=== PATIENT | male | born 1955 | race Caucasian/White ===

== ENCOUNTER 2021-05-10 23:45 | Emergency (ER) | payer MEDICARE, OTHER ==
[~2021-05-10] VITALS: Ht 73 cm; Wt 131.5 kg
--- OUTSIDE RECORDS SUMMARY | 2021-05-10 23:57 | XMS REPORT | Clinical Summary ---
Author Author [facility] Organization [facility] Address Unknown Phone Unavailable Care Team Providers Care Manager Of Planning Name Role Phone PCP Unavailable Allergies Not on File Medications Not on file Active Problems Not on file Social History Date Tobacco Use Types Packs/Day Years Used Never Assessed Sex Assigned at Date Recorded Not on file Last Filed Vital Signs Not on file Plan of Treatment Health Maintenance Due Date Last Done Comments Td/Tdap# 1955 Zoster Vaccine# (1 of 2) 2003 Fall Risk Assessment # 2018 Pneumococcal Vaccine: 65+ 2018 Years (1 of 1 - PPSV23) Influenza Vaccine (#1) 2021 Results Not on filefrom Last 3 Months Advance Directives For more information, please contact: [phone] Patient Electric Wirer Explanation Type Date Recorded Advance Directives and Living Will Power of Producer Assistant
--- OUTSIDE RECORDS SUMMARY | 2021-05-10 23:57 | XMS REPORT | Clinical Summary ---
Author Author [facility] Organization [facility] Address Unknown Phone Unavailable Care Team Providers Care Apprentice Name Role Phone Vannesa Spence PA-C Unavailable Source Comments Some departments are not documenting in the electronic medical record. If you d o not see the information that you expected, contact Release of Information in [facility] TakeCare Information Management department at [phone] for further assistan ce in locating additional records.[facility] Allergies Not on File Medications Not on file Active Problems Not on file Social History Date Tobacco Use Types Packs/Day Years Used Never Assessed Sex Assigned at Date Recorded Not on file Last Filed Vital Signs Not on file Plan of Treatment Health Maintenance Due Date Last Done Comments DTAP/TDAP VACCINES (1 - 1971 Tdap) HEPATITIS C SCREENING 1971 PHYSICAL (COMPREHENSIVE) 1971 EXAM COLORECTAL CANCER 2003 SCREENING SHINGLES RECOMBINANT 2003 VACCINE (1 of 2) PNEUMONIA (PPSV23) 2018 VACCINE (1 of 1 - PPSV23) INFLUENZA VACCINE 02/24/2021 Results Not on filefrom Last 3 Months Advance Directives Patient Examination Proctor Explanation Type Date Recorded Advance Directives 01/31/2011 12:00 AM and Living Will Advance Directives 01/22/2011 12:00 AM and Living Will Advance Directives 01/22/2011 12:00 AM and Living Will
--- OUTSIDE RECORDS SUMMARY | 2021-05-10 23:57 | XMS REPORT | Clinical Summary ---
Author Author [facility] Organization [facility] Address Unknown Phone Unavailable Care Team Providers Care Parts Lister Name Role Phone Greg Benavides MD PP [phone] Allergies No known active allergies Medications End Date Status Medication Sig Dispensed Refills Start Date Active fluticasone (FLONASE) 50 1 spray into 0 mcg/actuation nasal spray each nostril daily. Active hydrochlorothiazide Take 25 mg by 0 (HYDRODIURIL) 25 MG mouth daily. tablet Active LISINOPRIL ORAL Take by 0 mouth. Active Problems Not on file Social History Date Tobacco Use Types Packs/Day Years Used Former Smoker Comments Alcohol Use Standard Drinks/Week Not Asked 0 (1 standard drink = 0.6 o z pure alcohol) Sex Assigned at Date Recorded Not on file Last Filed Vital Signs Reading Time Taken Comments Vital Sign 130/88 08/31/2014 1:19 PM CYLINDER HONER Blood Pressure 96 08/31/2014 1:19 PM CYLINDER HONER Pulse 36.8 C (98.3 F) 08/31/2014 1:19 PM CYLINDER HONER Temperature 16 08/31/2014 1:19 PM CYLINDER HONER Respiratory Rate 96% 08/31/2014 1:19 PM CYLINDER HONER Oxygen Saturation - - Inhaled Oxygen Concentration 141 kg (310 lb) 08/31/2014 1:19 PM CYLINDER HONER Weight 185.4 cm (6' 1") 08/31/2014 1:19 PM CYLINDER HONER Height 40.9 08/31/2014 1:19 PM CYLINDER HONER Body Mass Index Plan of Treatment Not on file Results Not on filefrom Last 3 Months Insurance Type Payer Benefit Subscriber ID Effective Phone Address Plan / Dates Group BCBS [employer] BCBS [id number] 2016-P [facility] - NON HMO PLANS [id number] Care Teams Start Date End Date Parts Lister Relationship Specialty 08/31/14 Greg Benavides, PCP - Final Rail Cutter [facility] [id number] [place] [address]
--- NOTE | 2021-05-11 00:33 | ED Fall/Injury ---
General Chief Complaint: Trauma-Non Activation Stated Complaint: FALL Nursing Triage Note: Fall from standing; witnessed by bystanders; +LOC; on pradaxa for a-fib Source: patient, EMS Exam Limitations: no limitations History of Present Illness Date Seen by Provider: May 11, 2021 Time Seen by Provider: 12:16 Initial Comments 66-year-old male presents to the emergency room by ambulance today with a chief complaint of fall while walking to his hotel. Patient apparently was walking across a parking lot when bystanders saw him trip, he reportedly fell backwards striking his head on the ground. Per bystanders a loss of consciousness was reported, the patient denies this. He states that he has drank "a lot" today as he is in town for [facility] homecoming. He complains of some discomfort to the left elbow although he demonstrates good range of motion and no bony tenderness. Denies any other complaints of illness or injury. States that he is on Pradaxa for history of A. fib. Has an obvious contusion to the back of his head but declines CT brain. He is awake alert oriented, no acute distress. Does not require any medications. Patient did reportedly vomit after arrival to the emergency department. All other review of systems reviewed and negative except as stated. Location Injury Occurred: [employer] parking lot Occurred: just prior to arrival Injuries/Pain Location: upper extremity (left elbow) Context: unknown Loss of Consciousness: unsure Associated Symptoms (Fall): Nausea/Vomiting (vomiting on arrival) Allergies and Home Medications Allergies Coded Allergies: No Allergy Information Available (Unverified , 05/11/21) Patient Home Medication List Home Medication List Reviewed: Yes Review of Systems Review of Systems Constitutional: see HPI Eyes: No Symptoms Reported Ears, Nose, Mouth, Throat: no symptoms reported Respiratory: no symptoms reported Cardiovascular: no symptoms reported Gastrointestinal: vomiting Genitourinary: no symptoms reported Musculoskeletal: joint swelling (left elbow) Skin: other (abrasion left arm) Psychiatric/Neurological: No Symptoms Reported All Other Systems Reviewed Negative Unless Noted: Yes Past Onvyerp-Tkfimt-Ggvhpb Hx Patient Social History Tobacco Use?: No Use of E-Cig and/or Vaping dev: No Substance use?: No Alcohol Use?: Yes Alcohol type: Beer Pt feels they are or have been: No Immunizations Up To Date COVID19 Vaccine Marine Technician: [place] Physical Exam Vital Signs Vital Signs - First Documented 05/11/21 05/11/21 00:00 00:56 Temp 36.7 Pulse 78 Resp 18 B/P (MAP) 164/109 (127) Pulse Ox 94 O2 Delivery Room Air Capillary Refill : Less Than 3 Seconds Height, Weight, BMI Height: '" Weight: lbs. oz. kg; 246.00 BMI Method: General Appearance: WD/WN, no apparent distress HEENT: PERRL/EOMI, normal ENT inspection, TMs normal, pharynx normal, other (mild abrasion posterior occipus) Neck: non-tender, full range of motion Cardiovascular: irregularly irregular Respiratory: lungs clear, normal breath sounds, no respiratory distress, no accessory muscle use Gastrointestinal: normal bowel sounds, non tender, soft Extremities: normal range of motion, pedal edema, swelling (left medial elbow - hematoma, superficial abrasion down the forearm) Neurologic/Psychiatric: alert, normal mood/affect, oriented x 3 Skin: normal color, warm/dry, other (as above) [place] Coma Score Best Eye Response: (4) Open Spontaneously Best Verbal Response: (5) Oriented Best Motor Response: (6) Obeys Commands Progress/Results/Core Measures Results/Orders My Orders Orders - KALIA FRANKS MD Ekg Tracing (05/11/21 00:35) Vital Signs/I&O 05/11/21 05/11/21 00:00 00:56 Temp 36.7 Pulse 78 67 Resp 18 B/P (MAP) 164/109 (127) 139/86 Pulse Ox 94 97 O2 Delivery Room Air Room Air Blood Pressure Mean: 127 Progress Progress Note : Time: 00:30 Progress Note long discussion with patient regarding his anticoagulation (on pradaxa for a fib) and head injury. He states he did not have LOC (bystanders said apparently he did). He emphatically refuses CT head. He is awake, alert, oriented and neurologically normal. HIs VS are stable. HE does not want an xray of his left elbow (i do not think it is broken - good ROM no bony tenderness). I advised him of risks of no CT - he verbalizes understanding and again refuses. He declines any medications and states he will call a cab to go back to his hotel at the [employer]. Rest of his exam is unremarkable for any acute injury. Initial ECG Impression Date: May 11, 2021 Initial ECG Impression Time: 23:56 Initial ECG Rate: 76 Initial ECG Rhythm: A Fib/Flutter Initial ECG Impression: Atrial Fibrillation Departure Impression Primary Impression: Traumatic hematoma of left elbow Qualified Codes: S50.02XA - Contusion of left elbow, initial encounter Additional Impressions: Minor head injury Qualified Codes: S09.90XA - Unspecified injury of head, initial encounter Scalp abrasion Qualified Codes: S00.01XA - Abrasion of scalp, initial encounter Chronic anticoagulation Disposition: HOME, SELF-CARE Condition: Stable Departure-Patient Inst. Decision time for Depature: 00:34 Referrals: NO,LOCAL PHYSICIAN (PCP/Family) Primary Care Physician Patient Instructions: HEMATOMA, Minor Head Injury (DC) Add. Discharge Instructions: Ice packs to the left elbow off and on 20 minutes at a time 4 times a day for the next several days. Tylenol as needed for pain. Please come immediately back to the emergency room if you develop a severe headache, vomiting, problems with balance and coordination or any other emergent concerning symptoms develop. KALIA FRANKS MD May 11, 2021 00:33
[2021-05-11 00:56] VITALS: BP 139/86
== END 2021-05-11 01:05 | disposition home or self-care (01) ==
LOC: ER 23:52
DX: S50.02XA Contusion of left elbow, initial encounter (principal); S00.01XA Abrasion of scalp, initial encounter; S50.812A Abrasion of left forearm, initial encounter; S09.90XA Unspecified injury of head, initial encounter; I48.91 Unspecified atrial fibrillation; Z79.01 Long term (current) use of anticoagulants; W22.8XXA Striking against or struck by other objects, initial encounter
CPT/HCPCS: 93005

== ENCOUNTER 2021-05-11 08:59 | Emergency (ER) | payer MEDICARE, OTHER ==
[2021-05-11] MEDS ORDERED: NALOXONE 0.4 MG/ML 1 ML (NARCAN) VIAL IV ONE (09:05)
[2021-05-11] MEDS ORDERED: SUCCINYLCHOLINE INJ 100 MG/5 ML SYR/VIAL INJ ONE (09:05)
[2021-05-11] MEDS ORDERED: ROCURONIUM 10 MG/ML 5 ML SYRINGE IV ONE (09:05)
[2021-05-11] MEDS ORDERED: proPOfol 200 MG/20 ML (DIPRIVAN) VIAL IV ONE (09:05)
[2021-05-11] MEDS ORDERED: ETOMIDATE IV SOLN 20 MG/10 ML VIAL IV ONE (09:05)
[2021-05-11] MEDS ORDERED: fentaNYL INJ 100 MCG/2 ML AMP IV ONE (09:05)
[2021-05-11] MEDS ORDERED: PROPOFOL DRIP (ICU) 100 ML IV ONE ×2 (09:20→10:51)
[2021-05-11 09:40] LABS: BASOPHILS % (AUTO) 0 % (0-10); EOSINOPHILS % (AUTO) 0 % (0-10); HEMATOCRIT 47 % (40-54); HEMOGLOBIN 15.9 g/dL (13.3-17.7); LYMPHOCYTES # (AUTO) 1.6 10^3/uL (1.0-4.0); LYMPHOCYTES % (AUTO) 13 % (12-44); MEAN CORPUSCULAR HEMOGLOBIN 32 pg (25-34); MEAN CORPUSCULAR HGB CONC 34 g/dL (32-36); MEAN CORPUSCULAR VOLUME 96 fL (80-99); MEAN PLATELET VOLUME 12.1 fL (9.0-12.2); MONOCYTES # (AUTO) 1.2 10^3/uL (0.0-1.0); MONOCYTES % (AUTO) 9 % (0-12); NEUTROPHILS # (AUTO) 9.4 10^3/uL (1.8-7.8); NEUTROPHILS % (AUTO) 76 % (42-75); PLATELET COUNT 197 10^3/uL (130-400); WHITE BLOOD COUNT 12.4 10^3/uL (4.3-11.0)
[2021-05-11 09:42] LABS: BILIRUBIN,URINE NEGATIVE (NEGATIVE); CLARITY,URINE CLEAR; COLOR,URINE YELLOW; GLUCOSE, URINE (UA) 3+ (NEGATIVE); KETONES,URINE 1+ (NEGATIVE); LEUKOCYTE ESTERASE ,URINE NEGATIVE (NEGATIVE); NITRITE,URINE NEGATIVE (NEGATIVE); PH,URINE 5.5 (5-9); PROTEIN,URINE TRACE (NEGATIVE)
[2021-05-11 09:46] LABS: ALBUMIN 4.3 GM/DL (3.2-4.5); CHLORIDE 93 MMOL/L (98-107); POTASSIUM 5.2 MMOL/L (3.6-5.0); SODIUM 133 MMOL/L (135-145)
[2021-05-11 09:47] LABS: CALCIUM 9.1 MG/DL (8.5-10.1)
[2021-05-11 09:48] LABS: FIBRIN DEGRADATION PRODUCTS 3.81 UG/ML (0.00-0.49); INR 1.1 (0.8-1.4); PROTHROMBIN TIME PATIENT 14.7 SEC (12.2-14.7)
[2021-05-11 09:49] LABS: TOTAL PROTEIN 8.2 GM/DL (6.4-8.2)
[2021-05-11 09:50] LABS: BILIRUBIN,TOTAL 1.5 MG/DL (0.1-1.0); CARBON DIOXIDE 15 MMOL/L (21-32)
[2021-05-11 09:52] LABS: ALKALINE PHOSPHATASE 113 U/L (40-136); CREATININE SERUM 1.35 MG/DL (0.60-1.30); GFR ESTIMATED 53
[2021-05-11 09:53] LABS: BUN/CREATININE RATIO 14; GLUCOSE 407 MG/DL (70-105)
[2021-05-11 09:55] LABS: ALANINE AMINOTRANSFERASE 57 U/L (0-55); AMPHETAMINE SCREEN, URINE NEGATIVE (NEGATIVE); BARBITURATE SCREEN URINE NEGATIVE (NEGATIVE); BENZODIAZEPINES SCREEN URINE POSITIVE (NEGATIVE); CANNABINOID SCREEN, URINE NEGATIVE (NEGATIVE); COCAINE SCREEN URINE NEGATIVE (NEGATIVE); METHADONE STAT NEGATIVE (NEGATIVE); METHAMPHETAMINE SCREEN URINE S NEGATIVE (NEGATIVE); OPIATE SCREEN URINE NEGATIVE (NEGATIVE); OXYCODONE STAT NEGATIVE (NEGATIVE); PROPOXYPHENE STAT NEGATIVE (NEGATIVE); TRICYCLIC ANTIDEPRESSANTS SCRE NEGATIVE (NEGATIVE)
[2021-05-11 09:59] LABS: RBC,URINE 0-2 /HPF
[2021-05-11 10:00] LABS: BACTERIA,URINE NEGATIVE /HPF; WBC,URINE RARE /HPF
[2021-05-11 10:01] LABS: MAGNESIUM 1.8 MG/DL (1.6-2.4)
[2021-05-11] MEDS ORDERED: NS IV 1000 ML 1,000 ML IV SCH (10:15)
[2021-05-11] MEDS ORDERED: IOHEXOL 350 MG/ML 100 ML (OMNIPAQUE 350) VIAL IV ONE (10:30)
[2021-05-11] MEDS ORDERED: HOLD METFORMIN - RECEIVED CONTRAST 20 ML VIAL IV SCH (10:30)
[2021-05-11] MEDS ORDERED: NS 100 ML (IVPB) BAG IV ONE (10:30)
--- NOTE | 2021-05-11 10:37 | Anesthesia-Procedure Note ---
Procedures/Interventions Procedure Start/Stop/Diagnosis Date of Procedure: May 11, 2021 Start Time: 10:00 Referring Physician: Kaley Brief History Called to ED for assist with intubation. Upon my arrival, Alber Oneil CRNA had also just arrived. Patient is a large male being masked by RT. Good ventilation and SaO2 96%. Report received from Kaley regarding patient's history, meds already given, and attempts at intubation. Due to patient already receiving 150 mg Succs, patient was given 80mg Propofol and 30mg Rocuronium. 7.5 ett placed smoothly with Diaz X blade with grade 1 view, atraumatic. Positive etco2 with color change noted. BBS, CXR ordered. Reported off to RN and RT. Will be available for further consultation if needed. Stop Time: 10:07 Intubation 100% pre-Ox, [id number]: Yes Intubation Method: orotracheal Videoscope used: Yes Grade View: 1 Medications: Propofol (80mg), Rocuronium (30mg) Mask Ventilation: positive Positive End Tide CO2: Yes Breath Sounds after Intubation: bilateral-equal ETT Securred @ (cm): 22 Intubated with ease: Yes Intubation Complications: no complications Post Intubation Xray-done: Yes NATALIA TORREZ CRNA May 11, 2021 10:37
--- NOTE | 2021-05-11 10:40 | Diagnostic Imaging Report ---
EXAMINATION: Chest radiograph, portable AP view. DATE: 05/11/2021 10:28 AM INDICATION: 66-year-old male, unresponsive. Endotracheal tube placement. COMPARISON: None available. FINDINGS: The endotracheal tube is approximately 4 cm above the yolanda. The nasogastric tube extends below the included [id number]. Mediastinum does appear to be wide. There is no identified pneumothorax. Lung volumes are low with associated central bronchovascular crowding. There is blunting of the left lateral costophrenic angle. There is multifocal bilateral lung consolidation. IMPRESSION: 1. The endotracheal tube is 4 cm above the yolanda. 2. Nonspecific multifocal bilateral lung consolidation. 3. Probable small left pleural effusion. 4. Low lung volumes. 5. The mediastinum appears wide. CT angiography chest may be helpful to evaluate for potential vascular pathology is indicated clinically. Dictated by: Dictated on workstation # [id number]
[2021-05-11] MEDS ORDERED: RT-ALBUTEROL/IPRATROPIUM 3 ML (DUONEB) VIAL INH ONE (11:00)
--- NOTE | 2021-05-11 11:14 | Diagnostic Imaging Report ---
Exam: 1. CT angiography chest with intravenous contrast. 2. CT abdomen pelvis with intravenous contrast. Date: May 11, 2021. Indication: 66-year-old male, unresponsive. Trauma yesterday. Comparison: Chest radiograph May 11, 2021. Technique: 1. Axial CT angiography images of the chest were obtained with intravenous contrast. Coronal and sagittal as well as 3-dimensional reformats were obtained and provided. 2. Axial CT images of abdomen and pelvis were obtained with intravenous contrast. Coronal and sagittal reformats were obtained and provided. All CT scans use one or more of the following dose optimizing techniques: automated exposure control, MA and/or KvP adjustment based on patient size and exam type or iterative reconstruction. . Findings: There is a nodular area of opacification in the right lower lobe on axial image 78 measuring 1.7 cm in size. There is nonspecific airspace consolidation in the right upper lobe and left lower lobe. There are additional predominantly linear opacities in the right lower lobe. There is no pneumothorax. There is a small left pleural effusion. There is no identified pulmonary embolus. The main pulmonary artery diameter is within normal limits. The heart is not enlarged. There is no pericardial effusion. There are coronary artery calcifications and additional areas of atherosclerotic disease. There is no identified abnormally enlarged mediastinal, hilar, or axillary lymph node meeting CT size criteria for adenopathy. There is a mildly displaced fracture of the left fifth rib, sixth rib, seventh rib, eighth rib. There is incomplete bridging of the left eighth rib fracture although this may be a chronic nonunited fracture or subacute fracture. Recommend correlation. The liver is unremarkable in size and contour. There is no identified focal liver lesion. The main, right, and left portal veins are patent. The gallbladder is contracted. There is no biliary ductal dilation. The main pancreatic duct is not abnormally dilated. Unremarkable appearance of the pancreatic parenchyma. The spleen is normal in size. The adrenal glands are unremarkable. There is an area of right renal cortical scarring. There is no hydronephrosis. There is no identified renal or ureteral stone. There is a Philippe catheter within a collapsed urinary bladder. There is diverticulosis without evidence of acute diverticulitis. There is fatty wall thickening of the right colon and proximal aspect of the transverse colon consistent with chronic colitis. There is no evidence of acute appendicitis. There is an enteric tube present within the stomach. There is no free intraperitoneal air. There is no drainable fluid collection. There is no free pelvic fluid. There is no identified abnormally enlarged lymph node in the abdomen or pelvis meeting CT size criteria for adenopathy. There are multilevel degenerative changes of the spine. Impression: 1. Airspace consolidation in the right upper lobe and left lower lobe which may relate to multifocal pneumonia, aspiration, or other alveolar consolidative process. 2. Small left pleural effusion. 3. Somewhat nodular opacification and additional linear opacities in the right lower lobe which may relate to aspiration and/or pneumonia. Follow-up of the nodular opacity to ensure resolution is recommended. 4. No identified acute abnormality specifically in the abdomen or pelvis. Dictated by: Dictated on workstation # [id number]
[2021-05-11] MEDS ORDERED: PROPOFOL DRIP (ICU) 100 ML IV SCH (11:15)
--- NOTE | 2021-05-11 11:17 | Diagnostic Imaging Report ---
PROCEDURE: CT head and CT cervical spine without contrast. TECHNIQUE: Multiple contiguous axial images were obtained through the brain and cervical spine without the use of intravenous contrast. Sagittal and coronal reformations through the cervical spine were then performed. Auto Exposure Controls were utilized during the CT exam to meet ALARA standards for radiation dose reduction. INDICATION: Found unresponsive head trauma yesterday. Unwitnessed fall. Pain EXAMINATION: CT brain CT cervical spine 05/11/2021 FINDINGS: Brain: There is hyperdensity along the sulci of both anterior frontal parietal lobes suspicious for subarachnoid blood. A small focus of intraparenchymal hemorrhage is not excluded given adjacent hypodensities within the anterior parietal lobes which could represent reactive edema with focal infarcts not excluded. A small amount of subdural blood is noted overlying the right frontal parietal convexity. There are several punctate foci of hyperdensity within the anterior right parietal lobe well seen on images 44 and 42 consistent with small intraparenchymal hemorrhages. There is a small subdural hematoma in the right middle cranial fossa. No mass, mass effect or midline shift is seen with no hydrocephalus. There is a linear lucency along the posterior occipital calvarium which extends left paracentrally into the skull base suspicious for a nondisplaced nondepressed fracture. Paranasal sinuses and mastoid air cells appear clear. IMPRESSION: 1. Subarachnoid hemorrhage along the sulci of the anterior frontal parietal lobes bilaterally with multifocal areas of small subdural hematomas as described above. Intraparenchymal hemorrhage is also noted. Surrounding hypodensities within the inferior frontal lobes age indeterminant perhaps due to reactive edema with infarcts not excluded. 2. Nondisplaced nondepressed posterior calvarial fracture extending towards the left aspect of the skull base. CT cervical spine: Alignment of spine is preserved with no subluxations or fractures seen. The entire superior endplate at T1 is not included. Posterior endplate as well aligned with the C7 vertebral body. No acute fractures identified. Prevertebral soft tissues appear unremarkable other than the presence of a feeding tube and ET tube. IMPRESSION: 1. Chronic findings with no acute osseous abnormality within the cervical spine. Pertinent findings called to [place] by Dr. Leos at 11:10 a.m. 05/11/2021 Dictated by: Dictated on workstation # [id number]
--- NOTE | 2021-05-11 11:47 | ED Neurological Problem ---
General Chief Complaint: Unresponsive Stated Complaint: UNRESPONSIVE Nursing Triage Note: PT BROUGHT IN BY [facility] FROM [facility] SUITES FOR UNRESPONSIVE. PT WAS FOUND UNRESPONSIVE BY FRIEND IN ROOM. PER EMS, PT WAS PURPLE FROM THE CHEST UP. PT WAS SEEN IN ER LAST NIGHT FOR UNWITNESSED FALL. Source: family, EMS, old records Exam Limitations: clinical condition History of Present Illness Date Seen by Provider: May 11, 2021 Time Seen by Provider: 09:04 Initial Comments This 66-year-old gentleman presents to the emergency room via EMS after being found unresponsive in his hotel room. He was reportedly visiting from the [facility] for the [employer] homecoming. EMS reports that he was unresponsive upon their arrival this morning and was cyanotic in the upper torso, head and neck. They do not know initial oxygen saturations as the fire department was already providing assisted respirations with BVM and oxygen supplementation upon their arrival. Oxygen saturations were in the 90s at that time. Patient was exhibiting sufficient spontaneous respirations and did not require emergent intubation in the field. Blood pressure and heart rate are stable on arrival to the ER. Patient reportedly had a fall last night in which he fell backward, striking his head. Bystanders reportedly stated he had brief loss of consciousness which cannot be confirmed by this provider. He did present to the emergency department. The EMS crew here today states that they ran his transport yesterday as well, and he was noted to have an abrasion on the posterior scalp supposedly from the fall. When he presented to the emergency room last night he was concerned about a left elbow injury. He was advised by the emergency room provider to obtain CT imaging of the head, and x-ray of the elbow was also discussed. According to documentation it appears he refused imaging despite stating he was taking Pradaxa for atrial fibrillation and expressing understanding of risks associated with refusing imaging. He was reportedly alert, oriented, and neurologically intact at that time. Confirmation of Pradaxa use could not be confirmed in his medication filling record as of the time of collection of this history. A list of medications was not immediately available. It had been noted that patient was vomiting last night according to EMS. He had some gurgling respirations when they picked him up this morning. Due to his mental status with GCS of 4 or 5 and concern for airway protection, prompt intubation was pursued. Blood sugar for EMS this morning was in the 300s. Due to body habitus, c-collar could not be safely applied. Manual C-spine precautions were observed, particularly when moving the patient. Allergies and Home Medications Allergies Coded Allergies: No Allergy Information Available (Unverified , 05/11/21) Patient Home Medication List Home Medication List Reviewed: Yes Review of Systems Review of Systems Constitutional: see HPI Eyes: No Symptoms Reported Ears, Nose, Mouth, Throat: no symptoms reported Respiratory: see HPI Cardiovascular: see HPI Gastrointestinal: see HPI Genitourinary: no symptoms reported Musculoskeletal: see HPI Skin: see HPI Psychiatric/Neurological: See HPI Endocrine: No Symptoms Reported Hematologic/Lymphatic: No Symptoms Reported Past Zgmbtmj-Sklkzh-Tjdbpn Hx Patient Social History Tobacco Use?: No Smoking Status: Smoker Current Status UNK Use of E-Cig and/or Vaping dev: No Substance use?: No Alcohol Use?: Yes Alcohol Frequency: Daily Pt feels they are or have been: Unable to obtain Past Medical History Surgeries: Yes Abdominal (Colonoscopy with polypectomy) Respiratory: Yes COPD Cardiac: Yes Atrial Fibrillation Neurological: No Genitourinary: No Gastrointestinal: Yes Diverticulosis, Polyps Musculoskeletal: No Endocrine: Yes Diabetes, Non-Insulin dep HEENT: No Cancer: No Psychosocial: Yes (Daily alcohol consumption) Integumentary: No Physical Exam Vital Signs Vital Signs - First Documented 05/11/21 05/11/21 09:05 11:09 Pulse 101 Resp 29 B/P (MAP) 151/90 (110) Pulse Ox 99 O2 Delivery Ambu Bag FiO2 100 Capillary Refill : Less Than 3 Seconds Height, Weight, BMI Height: '" Weight: lbs. oz. kg; 246.00 BMI Method: General Appearance: WD/WN, obese, other (Unresponsive to verbal and physical stimulus. Did have spontaneous movement of all extremities during intubation preparation. Does have spontaneous respirations) HEENT: normal ENT inspection, other (Posterior scalp bleeding noted by EMS last night) Neck: normal inspection Respiratory: no accessory muscle use, rhonchi, wheezing, other (Spontaneous respirations noted, assisted by BVM) Cardiovascular: no edema, no murmur, irregularly irregular Gastrointestinal: soft; No distended Extremities: no pedal edema, other (Swelling and erythema of the left elbow) Neurologic/Psychiatric: other (Unresponsive with GCS of 5. He did exhibit spontaneous movement of all 4 extremities during intubation preparation) Crainal Nerves: PERRL Motor/Sensory: other (Noted to move all 4 extremities) Skin: normal color, warm/dry Procedures/Interventions Date of ETT Placement: May 11, 2021 Time of ETT Placement: 1005 Intubation Method: orotracheal Tube Size: 7.50 Medications: Etomidate, Fentanyl, Propofol, Rocuronium, Succinylcholine Positive End Tide CO2: Yes Breath Sounds after Intubation: bilateral-equal Intubation Complications: no complications Post Intubation Xray: Yes ET tube in satisfactory position Intubation was attempted by Dr. Harmon prior to consultation of anesthesiology. The first attempt was performed after etomidate 20 mg and succinylcholine 100 mg at 09:22 using a #3 Valeriy laryngoscope. The cords were well visualized. However, the angle of approach made insertion past the cords difficult. A second attempt to intubate was made after hyperoxygenation with BVM with the Omar Vision laryngoscope and a smaller 7.0 ET tube with careful manipulation of the stylet. There was progressive edema of the epiglottis interfering with intubation and visualization of the cords. There was also spontaneous movement of the cords and body movement during the attempt causing further interference. Again, great care was taken to avoid moving the neck since the trauma status was unknown. Intubation was again unsuccessful. A series of medications was administered to control movements and prevent vocal cord spasm including Fentanyl 100 mcg, Propofol 80 mg bolus, rocuronium 50 mg and an additional succinylcholine 50 mg. Oxygen saturations were closely monitored and attempts were abandoned when oxygen saturations began to drop. Once adequate sedation and neuromuscular blockade was achieved, a third attempt was made using the Omar vision and a bougie at 09:30. Patient was again hyper oxygenated with BVM prior to third attempt. By this time the edema from the epiglottis was casting more of a shadow obscuring visualization and the bougie could not make the turn into the airway without manipulation of the neck in an unsafe manner. Attempt was abandoned and anesthesia was consulted for intubation. Sedation was maintained on a propofol drip. Intubation was eventually performed successfully by the anesthesia team with a repeated bolus of propofol. In the meantime, patient was successfully adequately ventilated with BVM. Progress/Results/Core Measures Results/Orders Lab Results Laboratory Tests Test 05/11/21 09:08 05/11/21 09:10 05/11/21 11:08 Range/Units Serum Alcohol < 10 <10 MG/DL White Blood Count 12.4 H 4.3-11.0 10^3/uL Red Blood Count 4.93 4.30-5.52 10^6/uL Hemoglobin 15.9 13.3-17.7 g/dL Hematocrit 47 40-54 % Mean Corpuscular Volume 96 80-99 fL Mean Corpuscular Hemoglobin 32 25-34 pg Mean Corpuscular Hemoglobin Concent 34 32-36 g/dL Red Cell Distribution Width 12.6 10.0-14.5 % Platelet Count 197 130-400 10^3/uL Mean Platelet Volume 12.1 9.0-12.2 fL Immature Granulocyte % (Auto) 2 % Neutrophils (%) (Auto) 76 H 42-75 % Lymphocytes (%) (Auto) 13 12-44 % Monocytes (%) (Auto) 9 0-12 % Eosinophils (%) (Auto) 0 0-10 % Basophils (%) (Auto) 0 0-10 % Neutrophils # (Auto) 9.4 H 1.8-7.8 10^3/uL Lymphocytes # (Auto) 1.6 1.0-4.0 10^3/uL Monocytes # (Auto) 1.2 H 0.0-1.0 10^3/uL Eosinophils # (Auto) 0.0 0.0-0.3 10^3/uL Basophils # (Auto) 0.0 0.0-0.1 10^3/uL Immature Granulocyte # (Auto) 0.2 H 0.0-0.1 10^3/uL Prothrombin Time 14.7 12.2-14.7 SEC INR Comment 1.1 0.8-1.4 Activated Partial Thromboplast Time 33 24-35 SEC D-Dimer 3.81 H 0.00-0.49 UG/ML Urine Color YELLOW Urine Clarity CLEAR Urine pH 5.5 5-9 Urine Specific [place] 1.025 H 1.016-1.022 Urine Protein TRACE H NEGATIVE Urine Glucose (UA) 3+ H NEGATIVE Urine Ketones 1+ H NEGATIVE Urine Nitrite NEGATIVE NEGATIVE Urine Bilirubin NEGATIVE NEGATIVE Urine Urobilinogen 0.2 < = 1.0 MG/DL Urine Leukocyte Esterase NEGATIVE NEGATIVE Urine RBC (Auto) 2+ H NEGATIVE Urine RBC 0-2 /HPF Urine WBC RARE /HPF Urine Squamous Epithelial Cells 2-5 /HPF Urine Crystals NONE /LPF Urine Bacteria NEGATIVE /HPF Urine Casts NONE /LPF Urine Mucus NEGATIVE /LPF Urine Culture Indicated NO Sodium Level 133 L 135-145 MMOL/L Potassium Level 5.2 H 3.6-5.0 MMOL/L Chloride Level 93 L 98-107 MMOL/L Carbon Dioxide Level 15 L 21-32 MMOL/L Anion Gap 25 H 5-14 MMOL/L Blood Urea Nitrogen 19 H 7-18 MG/DL Creatinine 1.35 H 0.60-1.30 MG/DL Estimat Glomerular Filtration Rate 53 BUN/Creatinine Ratio 14 Glucose Level 407 *H 70-105 MG/DL Calcium Level 9.1 8.5-10.1 MG/DL Corrected Calcium 8.9 8.5-10.1 MG/DL Magnesium Level 1.8 1.6-2.4 MG/DL Total Bilirubin 1.5 H 0.1-1.0 MG/DL Aspartate Amino Transf (AST/SGOT) 72 H 5-34 U/L Alanine Aminotransferase (ALT/SGPT) 57 H 0-55 U/L Alkaline Phosphatase 113 40-136 U/L Myoglobin 349.5 H 10.0-92.0 NG/ML Troponin I < 0.028 <0.028 NG/ML C-Reactive Protein High Sensitivity 0.84 H 0.00-0.50 MG/DL Total Protein 8.2 6.4-8.2 GM/DL Albumin 4.3 3.2-4.5 GM/DL Urine Opiates Screen NEGATIVE NEGATIVE Urine Oxycodone Screen NEGATIVE NEGATIVE Urine Methadone Screen NEGATIVE NEGATIVE Urine Propoxyphene Screen NEGATIVE NEGATIVE Urine Barbiturates Screen NEGATIVE NEGATIVE Ur Tricyclic Antidepressants Screen NEGATIVE NEGATIVE Urine Phencyclidine Screen NEGATIVE NEGATIVE Urine Amphetamines Screen NEGATIVE NEGATIVE Urine Methamphetamines Screen NEGATIVE NEGATIVE Urine Benzodiazepines Screen POSITIVE H NEGATIVE Urine Cocaine Screen NEGATIVE NEGATIVE Urine Cannabinoids Screen NEGATIVE NEGATIVE Influenza Type A (RT-PCR) Not Detected Not Detecte Influenza Type B (RT-PCR) Not Detected Not Detecte SARS-CoV-2 RNA (RT-PCR) Not Detected Not Detecte My Orders Orders - MIRNA HARMON MD Propofol Drip (Icu) (Diprivan Drip (Icu) (05/11/21 09:20) Cbc With Automated Diff (05/11/21 09:34) Comprehensive Metabolic Panel (05/11/21 09:34) Fibrin Degradation Products (05/11/21 09:34) Protime With Inr (05/11/21 09:34) Ua Culture If Indicated (05/11/21 09:34) Drug Screen Stat (Urine) (05/11/21 09:34) Chest 1 View, Ap/Pa Only (05/11/21 09:44) Ekg Tracing (05/11/21 09:44) O2 (05/11/21 09:44) Monitor-Rhythm Ecg Trace Only (05/11/21 09:44) Ed Iv/Invasive Line Start (05/11/21 09:44) Ct Head/Cervical Spine Wo (05/11/21 09:44) Partial Thromboplastin Time (05/11/21 09:10) Hs C Reactive Protein (05/11/21 09:10) Magnesium (05/11/21 09:10) Myoglobin Serum (05/11/21 09:10) Troponin I (05/11/21 09:10) Ct Nguyen Chest/Noang Abd-Pelv W (05/11/21 10:10) Ns Iv 1000 Ml (Sodium Chloride 0.9%) (05/11/21 10:15) Alcohol (05/11/21 10:14) Iohexol Injection (Omnipaque 350 Mg/Ml 1 (05/11/21 10:30) Received Contrast (Hold Metformin- Contr (05/11/21 10:30) Ns (Ivpb) (Sodium Chloride 0.9% Ivpb Bag (05/11/21 10:30) Propofol Drip (Icu) (Diprivan Drip (Icu) (05/11/21 10:51) Albuterol/Ipra Inhalation Soln (Duoneb I (05/11/21 11:00) Svn Small Volume Nebulizer (05/11/21 10:54) Influenza A And B By Pcr (05/11/21 11:04) Covid 19 Inhouse Test (05/11/21 11:04) Propofol Drip (Icu) (Diprivan Drip (Icu) (05/11/21 11:15) Elbow, Left, 3 Views (05/11/21 11:26) Idarucizumab (Praxbind) (05/11/21 11:30) Ceftriaxone (Rocephin) (05/11/21 12:30) Etomidate Injection (Amidate Injection) (05/11/21 09:05) Fentanyl Inj (Sublimaze Injection) (05/11/21 09:05) Naloxone Injection (Narcan Injection) (05/11/21 09:05) Propofol Injection (Diprivan Injection) (05/11/21 09:05) Rocuronium 5 Ml Syringe (Rocuronium 5 Ml (05/11/21 09:05) Succinylcholine Injection (Succinylcholi (05/11/21 09:05) Medications Given in ED Current Medications Medications Dose Ordered Sig/Samantha Route Start Time Stop Time Status Last Admin Dose Admin Albuterol/ Ipratropium 3 ml ONCE ONCE INH 05/11/21 11:00 05/11/21 11:01 DC 05/11/21 11:17 3 ML Ceftriaxone Sodium 1000 mg/ Sterile Water 10 ml @ 200 mls/hr ONCE ONCE IV 05/11/21 12:30 05/11/21 12:32 DC 05/11/21 12:35 200 MLS/HR Idarucizumab 5 gm ONCE ONCE IV 05/11/21 11:30 05/11/21 11:32 DC 05/11/21 11:54 5 GM Iohexol 100 ml ONCE ONCE IV 05/11/21 10:30 05/11/21 10:31 DC 05/11/21 10:53 88 ML Sodium Chloride 100 ml ONCE ONCE IV 05/11/21 10:30 05/11/21 10:31 DC 05/11/21 10:53 80 ML Vital Signs/I&O 05/11/21 05/11/21 05/11/21 05/11/21 09:05 09:31 11:09 13:10 Pulse 101 98 108 84 Resp 29 16 18 B/P (MAP) 151/90 (110) 138/80 105/62 Pulse Ox 99 96 99 O2 Delivery Ambu Bag Mechanical Ventilator FiO2 100 Blood Pressure Mean: 99 Initial ECG Impression Date: May 11, 2021 Initial ECG Impression Time: 09:16 Initial ECG Rate: 107 Initial ECG Rhythm: A Fib/Flutter Comment Atrial fibrillation with no ST elevation or depression. No abnormal intervals or axis deviation. Diagnostic Imaging Diagonstic Imaging: Xray Plain Films/CT/US/NM/MRI: chest Comments NAME: BLOSSOM LOVELL [facility] REC#: [id number] PT STATUS: REG ER : 1955 PHYSICIAN: MIRNA HARMON MD ADMIT DATE: 05/11/21/ER Signed Date of Exam:05/11/21 CHEST 1 VIEW, AP/PA ONLY EXAMINATION: Chest radiograph, portable AP view. DATE: 05/11/2021 10:28 AM INDICATION: 66-year-old male, unresponsive. Endotracheal tube placement. COMPARISON: None available. FINDINGS: The endotracheal tube is approximately 4 cm above the yolanda. The nasogastric tube extends below the included [id number]. Mediastinum does appear to be wide. There is no identified pneumothorax. Lung volumes are low with associated central bronchovascular crowding. There is blunting of the left lateral costophrenic angle. There is multifocal bilateral lung consolidation. IMPRESSION: 1. The endotracheal tube is 4 cm above the yolanda. 2. Nonspecific multifocal bilateral lung consolidation. 3. Probable small left pleural effusion. 4. Low lung volumes. 5. The mediastinum appears wide. CT angiography chest may be helpful to evaluate for potential vascular pathology is indicated clinically. Dictated by: Dictated on workstation # [id number] Dict: 05/11/21 1028 Trans: 05/11/21 1202 [facility] [id number] Interpreted by: JOE HUDSON MD Electronically signed by: JOE HUDSON MD 05/11/21 1202 Reviewed: Reviewed by Me Diagonstic Imaging: CT Plain Films/CT/US/NM/MRI: c-spine, head Comments CT head and cervical spine viewed by me. Preliminary report reviewed. Discussed with the radiologist by phone. See report below: NAME: BLOSSOM LOVELL [facility] REC#: [id number] PT STATUS: REG ER : 1955 PHYSICIAN: MIRNA HARMON MD ADMIT DATE: 05/11/21/ER Signed Date of Exam:05/11/21 CT HEAD/CERVICAL SPINE WO PROCEDURE: CT head and CT cervical spine without contrast. TECHNIQUE: Multiple contiguous axial images were obtained through the brain and cervical spine without the use of intravenous contrast. Sagittal and coronal reformations through the cervical spine were then performed. Auto Exposure Controls were utilized during the CT exam to meet ALARA standards for radiation dose reduction. INDICATION: Found unresponsive head trauma yesterday. Unwitnessed fall. Pain EXAMINATION: CT brain CT cervical spine 05/11/2021 FINDINGS: Brain: There is hyperdensity along the sulci of both anterior frontal parietal lobes suspicious for subarachnoid blood. A small focus of intraparenchymal hemorrhage is not excluded given adjacent hypodensities within the anterior parietal lobes which could represent reactive edema with focal infarcts not excluded. A small amount of subdural blood is noted overlying the right frontal parietal convexity. There are several punctate foci of hyperdensity within the anterior right parietal lobe well seen on images 44 and 42 consistent with small intraparenchymal hemorrhages. There is a small subdural hematoma in the right middle cranial fossa. No mass, mass effect or midline shift is seen with no hydrocephalus. There is a linear lucency along the posterior occipital calvarium which extends left paracentrally into the skull base suspicious for a nondisplaced nondepressed fracture. Paranasal sinuses and mastoid air cells appear clear. IMPRESSION: 1. Subarachnoid hemorrhage along the sulci of the anterior frontal parietal lobes bilaterally with multifocal areas of small subdural hematomas as described above. Intraparenchymal hemorrhage is also noted. Surrounding hypodensities within the inferior frontal lobes age indeterminant perhaps due to reactive edema with infarcts not excluded. 2. Nondisplaced nondepressed posterior calvarial fracture extending towards the left aspect of the skull base. CT cervical spine: Alignment of spine is preserved with no subluxations or fractures seen. The entire superior endplate at T1 is not included. Posterior endplate as well aligned with the C7 vertebral body. No acute fractures identified. Prevertebral soft tissues appear unremarkable other than the presence of a feeding tube and ET tube. IMPRESSION: 1. Chronic findings with no acute osseous abnormality within the cervical spine. Pertinent findings called to [place] by Dr. Leos at 11:10 a.m. 05/11/2021 Dictated by: Dictated on workstation # [id number] Dict: 05/11/21 1057 Trans: 05/11/21 1126 [facility] [id number] Interpreted by: REBEL LEOS MD Electronically signed by: REBEL LEOS MD 05/11/21 1126 Diagonstic Imaging: CT Plain Films/CT/US/NM/MRI: chest, abdomen, pelvis Comments CT angiogram of the chest with nonangiogram CT of the abdomen and pelvis with contrast viewed by me and preliminary report reviewed. See report below: NAME: BLOSSOM LOVELL [facility] REC#: [id number] PT STATUS: REG ER : 1955 PHYSICIAN: MIRNA HARMON MD ADMIT DATE: 05/11/21/ER Signed Date of Exam:05/11/21 CT NGUYEN CHEST/NOANG ABD-PELV W Exam: 1. CT angiography chest with intravenous contrast. 2. CT abdomen pelvis with intravenous contrast. Date: May 11, 2021. Indication: 66-year-old male, unresponsive. Trauma yesterday. Comparison: Chest radiograph May 11, 2021. Technique: 1. Axial CT angiography images of the chest were obtained with intravenous contrast. Coronal and sagittal as well as 3-dimensional reformats were obtained and provided. 2. Axial CT images of abdomen and pelvis were obtained with intravenous contrast. Coronal and sagittal reformats were obtained and provided. All CT scans use one or more of the following dose optimizing techniques: automated exposure control, MA and/or KvP adjustment based on patient size and exam type or iterative reconstruction. . Findings: There is a nodular area of opacification in the right lower lobe on axial image 78 measuring 1.7 cm in size. There is nonspecific airspace consolidation in the right upper lobe and left lower lobe. There are additional predominantly linear opacities in the right lower lobe. There is no pneumothorax. There is a small left pleural effusion. There is no identified pulmonary embolus. The main pulmonary artery diameter is within normal limits. The heart is not enlarged. There is no pericardial effusion. There are coronary artery calcifications and additional areas of atherosclerotic disease. There is no identified abnormally enlarged mediastinal, hilar, or axillary lymph node meeting CT size criteria for adenopathy. There is a mildly displaced fracture of the left fifth rib, sixth rib, seventh rib, eighth rib. There is incomplete bridging of the left eighth rib fracture although this may be a chronic nonunited fracture or subacute fracture. Recommend correlation. The liver is unremarkable in size and contour. There is no identified focal liver lesion. The main, right, and left portal veins are patent. The gallbladder is contracted. There is no biliary ductal dilation. The main pancreatic duct is not abnormally dilated. Unremarkable appearance of the pancreatic parenchyma. The spleen is normal in size. The adrenal glands are unremarkable. There is an area of right renal cortical scarring. There is no hydronephrosis. There is no identified renal or ureteral stone. There is a Philippe catheter within a collapsed urinary bladder. There is diverticulosis without evidence of acute diverticulitis. There is fatty wall thickening of the right colon and proximal aspect of the transverse colon consistent with chronic colitis. There is no evidence of acute appendicitis. There is an enteric tube present within the stomach. There is no free intraperitoneal air. There is no drainable fluid collection. There is no free pelvic fluid. There is no identified abnormally enlarged lymph node in the abdomen or pelvis meeting CT size criteria for adenopathy. There are multilevel degenerative changes of the spine. Impression: 1. Airspace consolidation in the right upper lobe and left lower lobe which may relate to multifocal pneumonia, aspiration, or other alveolar consolidative process. 2. Small left pleural effusion. 3. Somewhat nodular opacification and additional linear opacities in the right lower lobe which may relate to aspiration and/or pneumonia. Follow-up of the nodular opacity to ensure resolution is recommended. 4. No identified acute abnormality specifically in the abdomen or pelvis. Dictated by: Dictated on workstation # [id number] Dict: 05/11/21 1102 Trans: 05/11/21 1203 [facility] [id number] Interpreted by: JOE HUDSON MD Electronically signed by: JOE HUDSON MD 05/11/21 1203 Diagonstic Imaging: Xray Plain Films/CT/US/NM/MRI: elbow Comments Left elbow x-ray viewed by me and preliminary report reviewed. See report below: NAME: BLOSSOM LOVELL [facility] REC#: [id number] PT STATUS: REG ER : 1955 PHYSICIAN: MIRNA HARMON MD ADMIT DATE: 05/11/21/ER Signed Date of Exam:05/11/21 ELBOW, LEFT, 3 VIEWS Omnipaque Unresponsive. Unwitnessed fall. Bruising of the elbow EXAMINATION: Left elbow 05/11/2021 FINDINGS: 3 views of the elbow. There are no acute fractures or dislocations. The joint spaces appear preserved. There is no joint effusion. Fat stranding about the posterior aspect of the forearm is noted which could be due to edema or contusion. IMPRESSION: 1. Likely edema or contusion within the soft tissues with no underlying acute osseous abnormality. Dictated by: Dictated on workstation # [id number] Dict: 05/11/21 1143 Trans: 05/11/21 1228 [facility] [id number] Interpreted by: REBEL LEOS MD Electronically signed by: REBEL LEOS MD 05/11/21 1228 Critical Care Note Critical Care Start Time: 09:04 Stop Time: 12:20 Progress Nursing documentation may be reviewed for exact timing of events. 12:25 - Patient was immediately assessed upon arrival and vital sign stability was ensured. Narcan 2 mg was ineffective in improving his mental status, and he remained unresponsive. He was receiving supplemental ventilation with BVM and oxygenating well. Patient was noted to move all extremities prior to intubation. Intubation was attempted multiple times by this provider and was ultimately unsuccessful. Intubation was difficult due to swelling of the epiglottis, restrictions of neck movement due to unknown trauma status, and patient's body habitus. Patient was ultimately intubated by anesthesia. Once airway was stabilized and secure, he was taken to CT scan. This led to diagnosis of intracranial hemorrhage and skull fracture. After discussing with family, use of Pradaxa was confirmed and Praxbind was administered. I discussed the situation and need for transfer to higher level of care with the family. Next of kin and medical decision-maker was identified as Blossom's daughter, Lynette. This was confirmed by his second daughter and his nephew, Fco Lovell, who also identified as the family attorney law clerk. All family parties present in person or by phone were in agreement with Lynette's designation and decision to transfer. They requested transfer to [facility]. We had discussion about transferring to a closer facility and the risk incurred with longer transfers. Jatin was open to trauma transfer at the time. After discussion of risks and benefits, they affirmed a request to transfer to [facility] for highest level of tertiary care. Patient remained stable. He had brief episodes of tachycardia with his atrial fibrillation but did not require rate limiting medications. Respiratory status was stable on the ventilator. He remained sedated with propofol. Rocephin is being administered prior to transfer due to presence of suspected aspiration on CT scan. Influenza and COVID 19 screenings were negative. DuoNeb was used to treat wheezing, and wheezing resolved. He received 1 liter of NS IVF. Elbow x- rays were negative for fracture or dislocation. CT chest, abdomen, and pelvis did not reveal any additional trauma. 12:47 - Patient is presently being packaged by the light crew. Patient's primary care provider Dr. Yanez called requesting an update on the patie nt. With his daughter's approval I provided a status update. Dr. Yanez confirmed the past medical history and Pradaxa use. He also reported it is not uncommon for Blossom to be resistant to medical recommendations such as immunizations, colonoscopy, watchman procedure, etc. He was not surprised that Blossom refused imaging last night. Departure Impression Primary Impression: Subarachnoid hemorrhage Additional Impressions: Subdural hematoma Fall on same level Qualified Codes: W18.30XA - Fall on same level, unspecified, initial encounter Anticoagulated Atrial fibrillation Qualified Codes: I48.91 - Unspecified atrial fibrillation Injury of left elbow Qualified Codes: S59.902A - Unspecified injury of left elbow, initial encounter Aspiration into airway Qualified Codes: T17.908A - Unspecified foreign body in respiratory tract, part unspecified causing other injury, initial encounter Closed fracture of posterior cranial fossa Qualified Codes: S02.19XA - Other fracture of base of skull, initial encounter for closed fracture Altered mental status Qualified Codes: R40.2431 - Jacqueline coma scale score 3-8, in the field [emt or ambulance] Disposition: 02 XFER [facility] Condition: Critical Transfer Transfer Reason: Exceeds level of care Time Spoke to Accepting Phy: 11:51 (Via administrative assistant coordinator) Transfer Progress Notes Transfer accepted to the trauma service at [facility], attending Dr. Jose Bonner Transfer Time: 12:20 Transfer Facility: [facility], Dr. Sathya Bonner Method of Transfer: Air Departure-Patient Inst. Referrals: NO,LOCAL PHYSICIAN (PCP/Family) Primary Care Physician MIRNA HARMON MD May 11, 2021 11:46
--- NOTE | 2021-05-11 11:55 | Diagnostic Imaging Report ---
Omnipaque Unresponsive. Unwitnessed fall. Bruising of the elbow EXAMINATION: Left elbow 05/11/2021 FINDINGS: 3 views of the elbow. There are no acute fractures or dislocations. The joint spaces appear preserved. There is no joint effusion. Fat stranding about the posterior aspect of the forearm is noted which could be due to edema or contusion. IMPRESSION: 1. Likely edema or contusion within the soft tissues with no underlying acute osseous abnormality. Dictated by: Dictated on workstation # [id number]
[2021-05-11] MEDS ORDERED: cefTRIAXone 1,000 MG in WATER (STERILE) FOR INJECTION 10 ML IV ONE (12:30)
[2021-05-11 13:10] VITALS: BP 105/62
== END 2021-05-11 13:10 | disposition short-term general hospital (02) ==
LOC: EDUNIT# 08:59 → ER 09:04
DX: S02.19XA Other fracture of base of skull, initial encounter for closed fracture (principal); S59.902A Unspecified injury of left elbow, initial encounter; I60.9 Nontraumatic subarachnoid hemorrhage, unspecified; I48.91 Unspecified atrial fibrillation; T17.400A Unspecified foreign body in trachea causing asphyxiation, initial encounter; R41.82 Altered mental status, unspecified; E66.9 Obesity, unspecified; J44.9 Chronic obstructive pulmonary disease, unspecified; E11.9 Type 2 diabetes mellitus without complications; Z68.45 Body mass index [BMI] 70 or greater, adult; Z20.822 Contact with and (suspected) exposure to COVID-19; Z79.01 Long term (current) use of anticoagulants; W18.30XA Fall on same level, unspecified, initial encounter
CPT/HCPCS: 31500; 51702; 70450; 71045; 71275; 72125; 73080; 74177; 80053; 80306; 81000; 83735; 83874; 84484; 85025; 85379; 85610; 85730; 86141; 87636; 93041; 94640; 94799; 96361; 96365; 96375; 99291; 99292; G0480; 36415; 80320